=== PATIENT | female | born 1975 | race African-American/Black ===

== ENCOUNTER 2017-08-07 17:27 | Emergency (ER) | payer OTHER ==
[2017-08-07 18:02] VITALS: BP 118/76; PULSE 94; TEMP 98.3; BMI 24.5
[2017-08-07] MEDS ORDERED: HEMOQUE TEST 1 EACH EACH ONE (18:31)
--- NOTE | 2017-08-07 18:34 | PDOC ---
History of Present Illness - General History Source: Patient Exam Limitations: No Limitations - History of Present Illness Initial Comments: 08/07/17 18:34 The patient is a 42 year old female presenting with her , with a significant past medical history of diabetes, who presents to the emergency department with sinus pain, headache and elevated blood glucose levels. She reports that her sinus pain is localized on the left side and is causing her to have left sided facial pain/pressure and left sided headache, ranging from mild to moderate, without radiation. She reports that she has been having bloody noses lately. She states that she has not ate any different foods. She reports that she notices that her vision seems a little blurry and notes that she has had blurry vision in the past with headaches but never this kind of pain. She states that her glucose was over 300 when she checked it at 1pm today and since then she has ate dinner. The patient denies chest pain, shortness of breath, and dizziness. Denies fever , chills, nausea, vomit, diarrhea and constipation. Allergies: None Past surgical history: None reported Social history: No tobacco, alcohol or drug use reported <Demetrius Trevino - Last Filed: 08/07/17 18:34> - General History Source: Patient Exam Limitations: No Limitations <Sugar Shannon - Last Filed: 08/07/17 19:28> - General Chief Complaint: Pain Stated Complaint: LEFT NASAL PAIN AND ELEVATED BLOOD GLUCOSE Past History <Demetrius Trevino - Last Filed: 08/07/17 18:34> - Past Medical History COPD: No Diabetes: Yes - Immunization History Immunization Up to Date: Yes - Suicide/Smoking/Psychosocial Hx Smoking History: Never smoked Have you smoked in the past 12 months: No Number of Cigarettes Smoked Daily: 0 Information on smoking cessation initiated: No Hx Alcohol Use: No Drug/Substance Use Hx: No Substance Use Type: None <Sugar Shannon - Last Filed: 08/07/17 19:28> - Past Medical History Allergies/Adverse Reactions: Allergies Allergy/AdvReac Type Severity Reaction Status Date / Time No Known Allergies Allergy Verified 08/07/17 17:29 Home Medications: Ambulatory Orders Fluticasone Prop 0.05% Nasal [Flonase -] 1 spray NS DAILY #1 bot 08/07/17 Ibuprofen [Motrin -] 600 mg PO TID #90 tablet 08/07/17 Metformin HCl [Glucophage] 1,000 mg PO BID 08/07/17 Review of Systems - Review of Systems Able to Perform ROS?: Yes Comments:: 08/07/17 18:34 GENERAL/CONSTITUTIONAL: No fever or chills. No weakness. HEAD, EYES, EARS, NOSE AND THROAT: (+) Sinus pain, Left sided facial pain. No change in vision. No ear pain or discharge. No sore throat. CARDIOVASCULAR: No chest pain or shortness of breath RESPIRATORY: No cough, wheezing, or hemoptysis. GASTROINTESTINAL: No nausea, vomiting, diarrhea or constipation. GENITOURINARY: No dysuria, frequency, or change in urination. MUSCULOSKELETAL: No joint or muscle swelling or pain. No neck or back pain. SKIN: No rash NEUROLOGIC: (+) Headache. No vertigo, loss of consciousness, or change in strength/sensation. ENDOCRINE: No increased thirst. No abnormal weight change HEMATOLOGIC/LYMPHATIC: No anemia, easy bleeding, or history of blood clots. ALLERGIC/IMMUNOLOGIC: No hives or skin allergy. <Demetrius Trevino - Last Filed: 08/07/17 18:34> *Physical Exam - Vital Signs Last Vital Signs Temp Pulse Resp BP Pulse Ox 98.3 F 94 H 16 118/76 99 08/07/17 17:33 08/07/17 17:33 08/07/17 17:33 08/07/17 17:33 08/07/17 17:33 - Physical Exam Comments: 08/07/17 18:35 GENERAL: Awake, alert, and fully oriented, in no acute distress HEAD: No signs of trauma, normocephalic, atraumatic EYES: PERRLA, EOMI, sclera anicteric, conjunctiva clear ENT: (+) Left maxillary sinus tenderness. Left turbinate enlargement with obstruction of the nare, small scab in side the nsare no active bleeding. Pain over palpation over PMJ, TM bilateral effusion, no bulging . Moist mucosa NECK: Normal ROM, supple, no lymphadenopathy, JVD, or masses LUNGS: No distress, speaks full sentences, clear to auscultation bilaterally HEART: Regular rate and rhythm, normal S1 and S2, no murmurs, rubs or gallops, peripheral pulses normal and equal bilaterally. ABDOMEN: Soft, nontender, normoactive bowel sounds. No guarding, no rebound. No masses EXTREMITIES : Normal inspection, Normal range of motion, no edema. No clubbing or cyanosis. NEUROLOGICAL: Cranial nerves II through XII grossly intact. Normal speech, normal gait, no focal sensorimotor deficits SKIN: Warm, Dry, normal turgor, no rashes or lesions noted. <Demetrius Trevino - Last Filed: 08/07/17 18:34> - Vital Signs Last Vital Signs Temp Pulse Resp BP Pulse Ox 98.3 F 94 H 16 118/76 99 08/07/17 17:33 08/07/17 17:33 08/07/17 17:33 08/07/17 17:33 08/07/17 17:33 <Sugar Shannon - Last Filed: 08/07/17 19:28> ED Treatment Course - LABORATORY CBC & Chemistry Diagram: 08/07/17 18:43 08/07/17 18:43 <Sugar Shannon - Last Filed: 08/07/17 19:28> Medical Decision Making - Medical Decision Making 08/07/17 18:30 42-year-old diabetic here today complaining of left facial pain and headache as well as high sugars. Patient states she feels like she has an infection or pressure some sort of irritation in her left snare left sinus. Does have a history of migraines and this is slightly different than prior migraines describes mild blurry vision in addition. No fever no chills does have pain in her left jaw with chewing no rash no facial swelling no chest pain or shortness of breath no change to her diet today her sugar was 300 she is no evidence of takes metformin twice daily Patient is awake alert no acute distress A she is are symmetric no appreciated facial swelling. She does have tenderness over the left maxillary sinus the left TMJ as well as the left temporal region pupils are equally round and reactive to light the left naris has the turbinate enlargement and inflammation of scab over the left nasal septum TMs show serous effusion bilaterally. Cardiac and lung exam is unremarkable as is abdominal exam. Neurologically she is with cramping nerves intact Differential includes DKA, electrolyte abnormality secondary to high glucose, migraine, sinusitis dehydration plan labs Leukos EKG pain medication inhaled nasal steroids for sinusitis. <Sugar Shannon - Last Filed: 08/07/17 19:28> *DC/Admit/Observation/Transfer - Attestations Scribe Attestion: 08/07/17 18:35 Documentation prepared by Demetrius Trevino, acting as medical doctor md for Sugar Shannon MD <Demetrius Trevino - Last Filed: 08/07/17 18:34> <Sugar Shannon - Last Filed: 08/07/17 19:28> Diagnosis at time of Disposition: Sinusitis - Discharge Dispostion Disposition: HOME Condition at time of disposition: Improved - Prescriptions Prescriptions: Fluticasone Prop 0.05% Nasal [Flonase -] 1 spray NS DAILY #1 bot Ibuprofen [Motrin -] 600 mg PO TID #90 tablet - Referrals Referrals: Narendra Gray MD [Staff Physician] - - Patient Instructions Printed Discharge Instructions: DI for Hyperglycemia -- Adult, Sinusitis Additional Instructions: He can take Motrin 600 mg every 8 hours as needed for pain. Take Flonase nasal spray 1 spray each nostril daily to help with her sinus congestion and facial pain. He can follow-up with your nose and throat Dr. Gray. See referral information for phone number to call and schedule. Follow-up with your primary care doctor within 1 week to discuss your sugar management return for any concerns or problems be sure to drink plenty of fluids
[2017-08-07] MEDS ORDERED: PSEUDOEPHEDRINE HCL 30 MG TABLET PO ONE (18:55)
[2017-08-07] MEDS ORDERED: IBUPROFEN 600 MG TABLET (FP) PO ONE ×2 (18:55→19:13)
[2017-08-07 19:04] LABS: BASOPHIL 0.5 % (0-2.0); EOSINOPHIL 0.8 % (0-4.5); MCH 27.4 pg (25.7-33.7); MCHC 33.1 g/dl (32.0-36.0); MEAN CELL VOLUME 82.9 fl (80-96); MEAN PLT VOLUME 9.1 fl (7.5-11.1); NEUTROPHILS 55.7 % (42.8-82.8); PLATELET COUNT 291 K/MM3 (134-434); RDW 12.7 % (11.6-15.6); WHITE BLOOD COUNT 9.3 K/mm3 (4.0-10.8)
[2017-08-07 19:10] LABS: ACETONE SERUM NEGATIVE (NEGATIVE)
[2017-08-07] MEDS ORDERED: PSEUDOEPHEDRINE HCL 30 MG TABLET ONE (19:13)
[2017-08-07 19:16] LABS: ALBUMIN 4.2 g/dl (3.5-5.0); ALK PHOS 40 U/L (32-92); ANION GAP 9 (8-16); BILIRUBIN,TOTAL 0.3 mg/dl (0.2-1.0); CO2 24 mmol/L (22-28); GLUCOSE,RANDOM 245 mg/dl (74-106); SGOT/AST 19 U/L (10-42); SGPT/ALT 18 U/L (10-40); TOT PROT 7.5 g/dl (6.4-8.3)
--- NOTE | 2017-08-08 17:41 | EKG ---
Test Reason : Blood Pressure : / mmHG Vent. Rate : 089 BPM Atrial Rate : 089 BPM P-R Int : 148 ms QRS Dur : 090 ms QT Int : 362 ms P-R-T Axes : 056 022 045 degrees QTc Int : 440 ms NORMAL SINUS RHYTHM NORMAL ECG NO PREVIOUS ECGS AVAILABLE Confirmed by MIKE MOULTON MD ([id number] on 08/08/2017 5:41:18 PM Referred By: DR TORRES Confirmed By:MIKE MOULTON MD
== END 2017-08-07 19:40 | disposition home or self-care (01) ==
LOC: FER 17:27
DX: J01.90 Acute sinusitis, unspecified (principal)
CPT/HCPCS: 36415; 80053; 82009; 85025; 93005; 99282-25